=== PATIENT | male | born 1980 | race American Indian/Alaskan Native ===

== ENCOUNTER 2017-06-04 03:22 | Emergency (ER) | payer SELFPAY ==
--- NOTE | 2017-06-04 04:01 | ED PDOC ---
HPI: Psych/Substance Abuse Time Seen by Provider: 06/04/17 03:32 Chief Complaint (Nursing): Alcohol Ingestion Chief Complaint (Provider): Alcohol Ingestion History Per: Patient History/Exam Limitations: intoxication Onset/Duration Of Symptoms: Days (x 1) Current Symptoms Are (Timing): Still Present Additional Complaint(s): Stanislaw is a 36 year old male who was brought to the emergency department by EMS for evaluation of alcohol intoxication. As per EMS, patient was found sleeping on sidewalk. Patient admits to drinking. No reports of trauma or injury. Ambulated to ER with steady gait with slowed speech. Initially, patient was uncooperative. but was able to be redirected. Denies medical problems. PMD: No Family Provider Past Medical History Reviewed: Historical Data, Nursing Documentation, Vital Signs Vital Signs: Last Vital Signs Temp 97.8 F 06/04/17 03:45 Pulse 95 H 06/04/17 03:45 Resp 18 06/04/17 03:45 BP 135/92 H 06/04/17 03:45 Pulse Ox 100 06/04/17 03:45 - Medical History PMH: No Chronic Diseases - Surgical History Surgical History: No Surg Hx - Family History Family History: States: Unknown Family Hx - Allergies Allergies/Adverse Reactions: Allergies Allergy/AdvReac Type Severity Reaction Status Date / Time No Known Allergies Allergy Verified 06/04/17 03:51 Review of Systems Review Of Systems: ROS cannot be obtained secondary to pt's inabilty to answer questions. (Caveat: Intoxication) Physical Exam - Reviewed Nursing Documentation Reviewed: Yes Vital Signs Reviewed: Yes - Physical Exam Appears: Positive for: Well (No signs of gross trauma) Neurologic/Psych: Positive for: Gait (Stable), Other (Slurred speech, well dressed) - ECG O2 Sat by Pulse Oximetry: 100 (RA) Pulse Ox Interpretation: Normal Medical Decision Making Medical Decision Making: Time: 03:35 Plan: - Will be allowed clinical sobriety and monitored until such. 615am awake, alert, ambulating w stable gait. No indication to maintain in ED longer, patient has ability to make decisions for self. Wants to be discharged. Scribe Attestation: Documented by Stanislaw Mancini, acting as a scribe for Damion Brito III, DO Provider Scribe Attestation: All medical record entries made by the Scribe were at my direction and personally dictated by me. I have reviewed the chart and agree that the record accurately reflects my personal performance of the history, physical exam, medical decision making, and the department course for this patient. I have also personally directed, reviewed, and agree with the discharge instructions and disposition. Disposition - Clinical Impression Clinical Impression: Alcohol abuse - Patient ED Disposition Is Patient to be Admitted: No Counseled Patient/Family Regarding: Studies Performed, Diagnosis, Need For Followup - Disposition Referrals: Alcoholics Anonymous [Outside] [facility] [Outside] Disposition: Routine/Home Disposition Time: 06:20 Condition: STABLE Instructions: Alcohol Intoxication (ED) Forms: [facility] (Per[place]ian)
[2017-06-04 06:51] VITALS: BP 129/77; PULSE 88; RESP 16; TEMP 98.1
[2017-06-04 08:35] VITALS: O2SAT 100
== END 2017-06-04 07:08 | disposition home or self-care (01) ==
LOC: H.ER 03:22
DX: F10.129 Alcohol abuse with intoxication, unspecified (principal)